=== PATIENT | female | born 1955 | race Caucasian/White ===

== ENCOUNTER → 2018-11-17 | Outpatient (CLI) | payer BC, OTHER ==
[~2018-11-17] VITALS: Ht 160 cm; Wt 72.1 kg
[~2018-11-17] MED LIST: BENAZEPRIL HCL40 MG PO; CRESTOR40 MG PO; NIFEDIPINE ER30 M1 PO; PROAIR RESPICL90 MCG INH; SYMBICORT160 MCG/4. INH; TYLENOL325 MG PO
[2018-11-17 09:00] LABS: HEMATOCRIT 44.8 % (37.0-47.0); HEMOGLOBIN 15.3 gm/dL (12.0-15.0); MCH 29.8 pg (26.0-34.0); MCHC 34.3 g/dL (28.0-37.0); RBC 5.14 mil/uL (4.20-5.00); RDW 13.5 % (10.5-14.5); WBC 7.1 thou/uL (4.0-11.0)
[2018-11-17 09:06] VITALS: BP 138/64
[2018-11-17 09:08] LABS: CALCIUM 9.4 mg/dL (8.5-10.1); CREATININE 0.7 mg/dL (0.6-1.0); POTASSIUM 4.1 mmol/L (3.5-5.1)
--- NOTE | 2018-11-18 09:36 | EKG ---
[address] [address] ELECTROCARDIOGRAM REPORT Name: ALVAREZ,MYANEETA KATHLEEN [facility] #: [facility] [id number] ������������������ Admission: 11/17/18 ������������������ Attend Phys: Brad Castro Discharge: ������������������ Date of : 55 Report #: [id number] ����������������������������������������������������������������� [id number] THIS REPORT FOR: //name// [facility] Test Date: 2018-11-17 Test Time: 09:03:27 Pat Name: MYA PINO Department: Room: Gender: F [employer] Maker: Aris ATWOOD : 1955 Requested By: Brad Castro Order Number: [id number] MD: Kamran Ray Measurements Intervals [place] Rate: 85 P: 76 WA: 178 QRS: 77 QRSD: 87 T: 40 QT: 375 QTc: 446 Interpretive Statements Sinus rhythm Normal tracing No previous ECG available for comparison Electronically Signed On 11-18-2018 9:36:32 CDT by Kamran Ray [email or web address] ��������������������������������������������� <ELECTRONICALLY SIGNED> ���������������������������������������� By: Kamran Ray MD, [facility] ��������������������������������������������� 11/18/18 0936 0903 2 Kamran Ray MD, FACC /EPI
--- NOTE | 2018-11-29 12:30 | CATHLAB ---
[facility] [address] [place] [address] INVASIVE PROCEDURE REPORT Name: ALVAREZMYA HEVER Room #: REG [facility]#: [id number] ������������� Admission: 11/17/18 ������������� Attend Phys: Brad Razo Discharge: ��� ������������� ��� Date of : 55 Date of Service: 11/29/18 1229 �� Report #: [id number] �������� ��������������������������������������������[id number] THIS REPORT FOR: //name// APPROVED REPORT Study performed: 11/17/2018 09:37:14 Patient Details Patient Status: Out-Patient Room #: The patient is a 63 year-old female Event Personnel Brad Castro Car Audio Installer, Deanna LaurenR, INSTRUCTOR OF SPANISH Monitor, Verna Márquez RN RN, Kathryn Callaway RN RN, Niurka Langford Scrcharlie Procedures Performed Art Access - R femoral artery* Left Heart Cath w/or w/o Coronaries [id number] [facility] [address] Initial Mod Sed Same Phys/QHP 5y [id number] Hemostasis with Manual pressure, supervision of conscious sedation Indication Positive stress test, Chest pain Procedure Narrative The Right Groin^ was infiltrated with 1% Lidocaine subcutaneous anesthesia. A PINNACLE 4FR Sheath #[id number] sheath was inserted into the RFA^. Coronary angiography was performed using coronary diagnostic catheters. The right coronary system was accessed and visualized with a JR4 catheter. The left coronary system was accessed and visualized with a JL4 catheter. The left ventricle was accessed and visualized with a JR4 catheter. Left ventricular/Aortic Valve gradient assessed via catheter pullback. Hemostasis was obtained with manual pressure following sheath removal without any complications. The patient tolerated the procedure well and there were no complications associated with the procedure. There was no hematoma. Intraoperative Conscious Sedation Sedation start time: 10:10 Case end Time: 10:39 Versed 2 mg Fluoro Time: 1.54 minutes [facility] [place] [address] INVASIVE PROCEDURE REPORT Name: MYA PINO Room #: REG [facility] [id number] ������������� Admission: 11/17/18 ������������� Attend Phys: Brad Razo Discharge: ��� ������������� ��� Date of : 55 Date of Service: 11/29/18 1229 �� Report #: [id number] �������� ��������������������������������������������[id number] Dose: DAP 1623.40 cGycm2 228 mGy Contrast Type and Amount: Omnipaque 35 ml Coronary Angiography The patient's coronary anatomy is right dominant. Diagnostic Cath Left Main Normal origin moderate to large caliber bifurcates left anterior descending left circumflex. Mild irregularities are noted but no high-grade lesions LAD Small-caliber type II vessel which originates from the left main had approximately 2-2.5 mm diameter. There is mild luminal irregularities present. A first diagonal originates followed by a second small diminutive diagonal. The LAD proper then continues in the anterior interventricular sulcus terminating as a bifurcating vessel at the apex. This made in distal portion of the LAD has luminal irregularities but no high-grade lesions. Appears to be 1 mm to 1.5 mm in diameter Diagonal 1 Small-caliber vessel without significant high-grade lesion says it courses along the anterolateral aspect of the left ventricle Diagonal 2 Diminutive vessel without high-grade lesions Circumflex Small-caliber vessel with luminal irregularities noted. The posterior circulation arises prior to the onset of a moderate marginal branch which supplies the lateral aspect of the left ventricle and part of the lateral posterior wall. No high-grade lesions are noted. Right Coronary Moderate to large caliber vessel of normal origin. Courses in the AV groove posteriorly. The acute margin a small caliber RV marginal branch originates. He has a proper continues posteriorly to the crux of the heart where it gives rise to a small posterior descending artery that has mild plaquing proximally. The RCA proper then continues on giving rise to a large posterior lateral branch which extends into the left aspect of the inferior wall of the left ventricle. No high-grade lesions are noted R PDA Small-caliber vessel with mild plaquing proximally which is not flow-limiting. And continues towards the apex free of high-grade disease RPLV Moderate caliber vessel without high-grade lesions with numerous bifurcations and his course Left Ventriculography Left Ventriculography was not performed. Hemodynamics [address] [address] INVASIVE PROCEDURE REPORT Name: MYA PINO Room #: REG CL Alejandro#: [id number] ������������� Admission: 11/17/18 ������������� Attend Phys: Brad Razo Discharge: ��� ������������� ��� Date of : 55 Date of Service: 11/29/18 1229 �� Report #: [id number] �������� ��������������������������������������������[id number] The aortic pressure is 128/65 mmHg with a mean of 92 mmHg. The left ventricular pressure is 154/15 mmHg with a mean of mmHg. The left ventricular end diastolic pressure is 30 mmHg. Conclusion 1. Mild coronary artery disease with evidence of luminal irregularities 2. Normal hemodynamics Recommendations Cardiac Risk Reduction Program Medical Therapy ��������������������������������������������� <ELECTRONICALLY SIGNED> ���������������������������������������� By: Brad Castro MD ��������������������������������������������� 11/29/18 1229 1229 1229 Brad Castro MD /INF
== END | disposition home or self-care (01) ==
LOC: CATH 06:25
PROVIDERS: Internal Medicine
DX: I25.10 Atherosclerotic heart disease of native coronary artery without angina pectoris (principal); I10 Essential (primary) hypertension; E78.5 Hyperlipidemia, unspecified; J45.909 Unspecified asthma, uncomplicated; F17.210 Nicotine dependence, cigarettes, uncomplicated; Z90.710 Acquired absence of both cervix and uterus; Z82.49 Family history of ischemic heart disease and other diseases of the circulatory system; Z98.890 Other specified postprocedural states; Z79.899 Other long term (current) drug therapy; Z88.8 Allergy status to other drugs, medicaments and biological substances